=== PATIENT | female | born 1995 | race Caucasian/White ===

== ENCOUNTER 2019-01-30 21:56 | Emergency (ER) | payer MEDICAID, OTHER ==
[~2019-01-30] VITALS: Ht 157 cm; Wt 50.0 kg
[2019-01-30 23:36] LABS: BILIRUBIN,URINE NEGATIVE (NEGATIVE); CLARITY,URINE SL CLOUDY; COLOR,URINE YELLOW; GLUCOSE, URINE (UA) NEGATIVE (NEGATIVE); KETONES,URINE NEGATIVE (NEGATIVE); LEUKOCYTE ESTERASE ,URINE NEGATIVE (NEGATIVE); NITRITE,URINE NEGATIVE (NEGATIVE); PROTEIN,URINE NEGATIVE (NEGATIVE)
[2019-01-30 23:47] LABS: WBC,URINE 0-2 /HPF
[2019-01-30 23:48] LABS: AMORPHOUS SEDIMENT,UR FEW AMOR URATES /LPF; BACTERIA,URINE TRACE /HPF
[2019-01-30 23:49] LABS: BASOPHILS % (AUTO) 0 % (0-10); EOSINOPHILS # (AUTO) 0.4 10^3/uL (0.0-0.3); EOSINOPHILS % (AUTO) 6 % (0-10); HEMATOCRIT 39 % (35-52); HEMOGLOBIN 12.5 G/DL (11.5-16.0); LYMPHOCYTES # (AUTO) 2.2 X 10^3 (1.0-4.0); LYMPHOCYTES % (AUTO) 33 % (12-44); MEAN CORPUSCULAR HEMOGLOBIN 30 PG (25-34); MEAN CORPUSCULAR HGB CONC 33 G/DL (32-36); MEAN CORPUSCULAR VOLUME 93 FL (80-99); MEAN PLATELET VOLUME 9.1 FL (7.4-10.4); MONOCYTES # (AUTO) 0.6 X 10^3 (0.0-1.0); MONOCYTES % (AUTO) 9 % (0-12); NEUTROPHILS # (AUTO) 3.5 X 10^3 (1.8-7.8); NEUTROPHILS % (AUTO) 52 % (42-75); PLATELET COUNT 279 10^3/uL (130-400); RED CELL DISTRIBUTION WIDTH 15.9 % (10.0-14.5); WHITE BLOOD COUNT 6.8 10^3/uL (4.3-11.0)
[2019-01-30 23:51] LABS: AMPHETAMINE SCREEN, URINE NEGATIVE (NEGATIVE); BARBITURATE SCREEN URINE NEGATIVE (NEGATIVE); BENZODIAZEPINES SCREEN URINE NEGATIVE (NEGATIVE); CANNABINOID SCREEN, URINE POSITIVE (NEGATIVE); COCAINE SCREEN URINE NEGATIVE (NEGATIVE); METHADONE STAT NEGATIVE (NEGATIVE); METHAMPHETAMINE SCREEN URINE S NEGATIVE (NEGATIVE); OPIATE SCREEN URINE NEGATIVE (NEGATIVE); OXYCODONE STAT NEGATIVE (NEGATIVE); PROPOXYPHENE STAT NEGATIVE (NEGATIVE); TRICYCLIC ANTIDEPRESSANTS SCRE NEGATIVE (NEGATIVE)
[2019-01-31 00:01] LABS: INR 0.9 (0.8-1.4); PROTHROMBIN TIME PATIENT 12.9 SEC (12.2-14.7)
[2019-01-31 00:07] LABS: ALANINE AMINOTRANSFERASE 15 U/L (0-55); ALBUMIN 4.3 GM/DL (3.2-4.5); ALKALINE PHOSPHATASE 62 U/L (40-136); AMYLASE 65 U/L (25-125); BILIRUBIN,TOTAL 0.1 MG/DL (0.1-1.0); BUN/CREATININE RATIO 20; CALCIUM 8.7 MG/DL (8.5-10.1); CARBON DIOXIDE 24 MMOL/L (21-32); CHLORIDE 106 MMOL/L (98-107); CREATININE SERUM 0.81 MG/DL (0.60-1.30); GFR ESTIMATED > 60; GLUCOSE 77 MG/DL (70-105); MAGNESIUM 1.8 MG/DL (1.6-2.4); POTASSIUM 4.2 MMOL/L (3.6-5.0); SODIUM 141 MMOL/L (135-145); TOTAL PROTEIN 7.1 GM/DL (6.4-8.2)
[2019-01-31] MEDS ORDERED: NS 100 ML (IVPB) BAG IV ONE (01:30)
[2019-01-31] MEDS ORDERED: HOLD METFORMIN - RECEIVED CONTRAST 20 ML VIAL IV SCH (01:30)
[2019-01-31] MEDS ORDERED: IOHEXOL 350 MG/ML 100 ML (OMNIPAQUE 350) VIAL IV ONE (01:30)
--- NOTE | 2019-01-31 01:50 | NUR ---
CHECKED ON PT WELFARE, PT LYING QUIETLY IN FOUR POINT RESTRAINTS. PMS INTACT X4
--- NOTE | 2019-01-31 02:36 | ED GI ---
General Chief Complaint: Abdominal/GI Problems Stated Complaint: DECREASED URINATION AND BOWEL MOVEMENTS Source of Information: Patient History of Present Illness Date Seen by Provider: Jan 30, 2019 Time Seen by Provider: 23:10 Initial Comments PT ARRIVES VIA POV FROM HOME, WITH SISTER PT STATES SHE HAD DIARRHEA X 1 --2 DAYS AGO, BUT NO BM SINCE THEN--STATES SHE HAD TO STRAIN TO EVEN GET LIQUID STOOL OUT STATES FOR THE LAST COUPLE OF DAYS "CAN'T USE THE BATHROOM"--STATES SHE HAS NOT VOIDED OR URINATED FOR THE LAST COUPLE OF DAYS STATES SHE HAS NOT URINATED SINCE YESTERDAY NO ABDOMINAL PAIN, BUT FEELS BLOATED NO FEVER NO PAIN ON URINATION. NO BLOOD IN STOOLS NO NAUSEA/VOMITING. STATES SHE HAS BEEN EATING AND DRINKING "NORMAL" --ATE ONE TIME TODAY--A PIECE OF CHICKEN. STATES SHE HAS HAD 2 SODAS AND A LITTLE BIT OF WATER TO DRINK TODAY. NO PAIN ANYWHERE NO NUMBNESS OR TINGLING ANYWHERE NO BACK PAIN NO PRIOR HISTORY OF SIMILAR, OTHER THAN CONSTIPATION NO PRIOR ABDOMINAL SURGERIES STATES SHE HAS BEEN ON PROZAC AND ZYPREXA FOR 3-4 MONTHS, AND HAS NOT HAD ANY MEDICATION CHANGES. STATES SHE HAD RSV 1 WEEK AGO--SEEN AT [facility]. NO RX'S GIVEN, AND THOSE SYMPTOMS HAVE RESOLVED. LMP--NOW, NORMAL. NO CONTROL STATES SHE HAS BEEN HERE FOR THE LAST COUPLE OF MONTHS, STAYING WITH HER SISTER, BUT IS MOVING BACK TO [place] IN THE MORNING. PCP: [facility] Allergies and Home Medications Allergies Coded Allergies: No Known Drug Allergies (Unverified , 01/31/19) Patient Home Medication List Home Medication List Reviewed: Yes Review of Systems Review of Systems Constitutional: no symptoms reported; No chills, No diaphoresis, No fever, No weakness EENTM: No Symptoms Reported Respiratory: No Symptoms Reported Cardiovascular: No Symptoms Reported Gastrointestinal: See HPI; Denies Abdominal Pain; Diarrhea; Denies Nausea, Denies Poor Appetite, Denies Poor Fluid Intake, Denies Rectal Bleeding, Denies Vomiting Genitourinary: See HPI; Denies Flank Pain Musculoskeletal: no symptoms reported; No back pain, No neck pain Skin: no symptoms reported Psychiatric/Neurological: No Symptoms Reported; Denies Numbness, Denies Paresthesia Endocrine: No Symptoms Reported Hematologic/Lymphatic: No Symptoms Reported Past [id number]-Xlgbtv Hx Patient Social History Alcohol Use: Past History (HISTORY OF ABUSE--HEAVY/DAILY USE--LAST ETOH 12/2018) Recreational Drug Use: Yes ("EVERYTHING EXCEPT HEROIN"--DENIES IV USE) Drug of Choice: "EVERY DRUG EXCEPT HEROIN" PER PT, DENIES IV USE Smoking Status: Current Everyday Smoker (1/2 PPD) Type Used: Cigarettes (1 /2 PPD) 2nd Hand Smoke Exposure: No Recent Foreign Travel: No Contact w/Someone Who Travel: No Recent Hopitalizations: No Physical Abuse: No Sexual Abuse: No Mistreated: No Fear: No Immunizations Up To Date Tetanus Booster (TDap): Unknown PED Vaccines UTD: Yes Seasonal Allergies Seasonal Allergies: No Past Medical History Surgeries: Yes (WISDOM TEETH REMOVED.) Respiratory: No Cardiac: No Neurological: No Reproductive Disorders: No Genitourinary: No Gastrointestinal: Yes (HEPATITIS B--NO TREATMENT. ) Liver Disease/Jaundice, Hepatitis Musculoskeletal: No Endocrine: No HEENT: No Cancer: No Psychosocial: Yes (POLYSUBSTANCE ABUSE--"EVERYTHING EXCEPT HEROIN" PER PT, DENIES IV USE. DRANK HEAVILY/DAILY--CLAIMS LAST ETOH WAS 12/2018--STATES SHE WAS IN SUBSTANCE ABUSE TREATMENT FOR 1 1/2 TO 2 YEARS, ENDED IN 2016. ) Integumentary: No Physical Exam Vital Signs Vital Signs - First Documented 01/30/19 23:00 Temp 36.8 Pulse 75 Resp 20 B/P (MAP) 94/82 (86) Pulse Ox 98 O2 Delivery Room Air Capillary Refill : Height/Weight/BMI Height: '" Weight: lbs. oz. kg; BMI Method: General Appearance: no apparent distress, thin, other (SMILING, CONSTANT MOVEMENTS OF BODY AND MOUTH. ) HEENT: PERRL/EOMI Neck: normal inspection Respiratory: normal breath sounds, no respiratory distress, no accessory muscle use Cardiovascular: regular rate, rhythm, no murmur Gastrointestinal: normal bowel sounds, non tender, soft Extremities: normal inspection, normal capillary refill Back: no CVA tenderness Neurologic/Psychiatric: derrickman helper II-XII nml as tested, no motor/sensory deficits, alert, normal mood/affect, oriented x 3 Skin: normal color, warm/dry, tattoos/piercings (EXTENSIVE TATTOOS), other (EXTENSIVE SORES/SCARS/SCABS TO FACE, ARMS, CHEST--MANY ON CHEST ARE FRESHLY PICKED AT AND BLEEDING. ) Progress/Results/Core Measures Results/Orders Lab Results Laboratory Tests Test 01/30/19 23:25 01/30/19 23:40 Range/Units Urine Color YELLOW Urine Clarity SL CLOUDY Urine pH 6.0 5-9 Urine Specific [place] 1.025 H 1.016-1.022 Urine Protein NEGATIVE NEGATIVE Urine Glucose (UA) NEGATIVE NEGATIVE Urine Ketones NEGATIVE NEGATIVE Urine Nitrite NEGATIVE NEGATIVE Urine Bilirubin NEGATIVE NEGATIVE Urine Urobilinogen 0.2 < = 1.0 MG/DL Urine Leukocyte Esterase NEGATIVE NEGATIVE Urine RBC (Auto) 3+ H NEGATIVE Urine RBC 10-25 H /HPF Urine WBC 0-2 /HPF Urine Crystals PRESENT H /LPF Urine Amorphous Sediment FEW CONCEPCIÓN URATES H /LPF Urine Bacteria TRACE /HPF Urine Casts NONE /LPF Urine Mucus NEGATIVE /LPF Urine Culture Indicated NO Urine Opiates Screen NEGATIVE NEGATIVE Urine Oxycodone Screen NEGATIVE NEGATIVE Urine Methadone Screen NEGATIVE NEGATIVE Urine Propoxyphene Screen NEGATIVE NEGATIVE Urine Barbiturates Screen NEGATIVE NEGATIVE Ur Tricyclic Antidepressants Screen NEGATIVE NEGATIVE Urine Phencyclidine Screen NEGATIVE NEGATIVE Urine Amphetamines Screen NEGATIVE NEGATIVE Urine Methamphetamines Screen NEGATIVE NEGATIVE Urine Benzodiazepines Screen NEGATIVE NEGATIVE Urine Cocaine Screen NEGATIVE NEGATIVE Urine Cannabinoids Screen POSITIVE H NEGATIVE White Blood Count 6.8 4.3-11.0 10^3/uL Red Blood Count 4.15 L 4.35-5.85 10^6/uL Hemoglobin 12.5 11.5-16.0 G/DL Hematocrit 39 35-52 % Mean Corpuscular Volume 93 80-99 FL Mean Corpuscular Hemoglobin 30 25-34 PG Mean Corpuscular Hemoglobin Concent 33 32-36 G/DL Red Cell Distribution Width 15.9 H 10.0-14.5 % Platelet Count 279 130-400 10^3/uL Mean Platelet Volume 9.1 7.4-10.4 FL Neutrophils (%) (Auto) 52 42-75 % Lymphocytes (%) (Auto) 33 12-44 % Monocytes (%) (Auto) 9 0-12 % Eosinophils (%) (Auto) 6 0-10 % Basophils (%) (Auto) 0 0-10 % Neutrophils # (Auto) 3.5 1.8-7.8 X 10^3 Lymphocytes # (Auto) 2.2 1.0-4.0 X 10^3 Monocytes # (Auto) 0.6 0.0-1.0 X 10^3 Eosinophils # (Auto) 0.4 H 0.0-0.3 10^3/uL Basophils # (Auto) 0.0 0.0-0.1 10^3/uL Prothrombin Time 12.9 12.2-14.7 SEC INR Comment 0.9 0.8-1.4 Activated Partial Thromboplast Time 28 24-35 SEC Sodium Level 141 135-145 MMOL/L Potassium Level 4.2 3.6-5.0 MMOL/L Chloride Level 106 98-107 MMOL/L Carbon Dioxide Level 24 21-32 MMOL/L Anion Gap 11 5-14 MMOL/L Blood Urea Nitrogen 16 7-18 MG/DL Creatinine 0.81 0.60-1.30 MG/DL Estimat Glomerular Filtration Rate > 60 BUN/Creatinine Ratio 20 Glucose Level 77 70-105 MG/DL Calcium Level 8.7 8.5-10.1 MG/DL Corrected Calcium 8.5 8.5-10.1 MG/DL Magnesium Level 1.8 1.6-2.4 MG/DL Total Bilirubin 0.1 0.1-1.0 MG/DL Aspartate Amino Transf (AST/SGOT) 16 5-34 U/L Alanine Aminotransferase (ALT/SGPT) 15 0-55 U/L Alkaline Phosphatase 62 40-136 U/L Total Protein 7.1 6.4-8.2 GM/DL Albumin 4.3 3.2-4.5 GM/DL Amylase Level 65 25-125 U/L Serum Test, Qualitative NEGATIVE NEGATIVE Serum Alcohol < 10 <10 MG/DL My Orders Orders - [place] HUI DO Ed Iv/Invasive Line Start (01/30/19 23:17) Urine Bedside (01/30/19 23:17) Bladder Scan (01/30/19 23:17) Alcohol (01/30/19 23:17) Amylase (01/30/19 23:17) Cbc With Automated Diff (01/30/19 23:17) Comprehensive Metabolic Panel (01/30/19 23:17) Drug Screen Stat (Urine) (01/30/19 23:17) Magnesium (01/30/19 23:17) Protime With Inr (01/30/19 23:17) Partial Thromboplastin Time (01/30/19 23:17) Ua Culture If Indicated (01/30/19 23:17) Hcg,Qualitative Serum (01/31/19 00:11) Ct Abdomen/Pelvis W (01/31/19 00:25) Acute Abd Series (01/31/19 00:25) Iohexol Injection (Omnipaque 350 Mg/Ml 1 (01/31/19 01:30) Received Contrast (Hold Metformin- Contr (01/31/19 01:30) Ns (Ivpb) (Sodium Chloride 0.9% Ivpb Bag (01/31/19 01:30) Medications Given in ED Current Medications Medications Dose Ordered Sig/Shalini Route Start Time Stop Time Status Last Admin Dose Admin Iohexol 100 ml ONCE ONCE IV 01/31/19 01:30 01/31/19 01:31 DC 01/31/19 01:40 66 ML Sodium Chloride 100 ml ONCE ONCE IV 01/31/19 01:30 01/31/19 01:31 DC 01/31/19 01:40 80 ML Vital Signs/I&O 01/30/19 01/31/19 23:00 02:45 Temp 36.8 36.8 Pulse 75 75 Resp 20 18 B/P (MAP) 94/82 (86) 105/71 (86) Pulse Ox 98 100 O2 Delivery Room Air Room Air Progress Progress Note : Progress Note PT VOIDED A SMALL AMOUNT ON ARRIVAL. BLADDER SCAN SHOWED 282 ML PT RESTED QUIETLY FOR ENTIRE ER STAY AND HAD NO COMPLAINTS FOR ENTIRE ER STAY Diagnostic Imaging Comments ABDOMEN XRAYS--NO ACUTE PROCESS, VERY MINIMAL STOOL IN COLON, NO OBSTRUCTION. PENDING RADIOLOGIST REVIEW CT ABDOMEN/PELVIS--NO ACUTE PROCESS, PER [facility] VIA FAX AT 0221 Reviewed: Reviewed by Me Departure Impression Primary Impression: INTESTINAL GAS AND BLOATING Additional Impression: Marijuana use Disposition: HOME, SELF-CARE Condition: Stable Departure-Patient Inst. Referrals: NO,LOCAL PHYSICIAN (PCP/Family) Primary Care Physician Patient Instructions: Drug Abuse and Drug Addiction (DC), Gas and Bloating Add. Discharge Instructions: DRINK LOTS OF CLEAR LIQUIDS--WATER, BROTH, JELLO, GATORADE--DRINK ENOUGH SO YOU ARE URINATING EVERY 2-3 HOURS WHILE AWAKE BRATS DIET--BANANAS, RICE, APPLESAUCE, TOAST, SALTINES OVER THE COUNTER GAS X, MYLICON, OR PHAZYME FOR INTESTINAL GAS FOLLOW UP WITH OF CHOICE IN [place] IN 2-3 DAYS IF NO BETTER All discharge instructions reviewed with patient and/or family. Voiced understanding. [place] HUI DO Jan 31, 2019 02:36 POS
[2019-01-31 02:45] VITALS: BP 105/71
--- NOTE | 2019-01-31 06:39 | Diagnostic Imaging Report ---
INDICATION: Abdominal pain. COMPARISON: CT abdomen pelvis performed earlier same day. FINDINGS: Lungs are clear. No pleural effusion or pneumothorax. Normal cardiomediastinal silhouette. No free intraperitoneal air or fluid. Contrast material is present within the renal collecting system from recent CT of the abdomen and pelvis. Normal regional skeleton. IMPRESSION: 1. No features of acute process. Please see CT abdomen pelvis report from earlier same day for complete evaluation of the abdomen. Dictated by: Dictated on workstation # [id number]
--- NOTE | 2019-01-31 06:41 | Diagnostic Imaging Report ---
CT ABDOMEN/PELVIS W TECHNIQUE: Multiple contiguous axial images were obtained through the abdomen and pelvis after administration of intravenous contrast. All CT scans use one or more of the following dose optimizing techniques: automated exposure control, MA and/or KvP adjustment based on a patient size and exam type, or iterative reconstruction. INDICATION: Decreased urination and bowel movements. COMPARISON: None available. FINDINGS: Lower chest: The lung bases are clear. No pericardial or pleural effusion. Peritoneum: No free intraperitoneal air or fluid. Liver and biliary system: The liver is normal. The gallbladder is normal. No biliary duct dilation. Spleen and Pancreas: Spleen is normal. The pancreas enhances normally without mass lesion or peripancreatic inflammatory changes. Adrenals: Normal. tract: The kidneys enhance normally without suspicious mass or obstruction. Urinary bladder is distended without wall thickening. Uterus and ovaries are normal in appearance. Air-filled tampon within the vagina. GI tract: Stomach is partially filled with fluid and there is no wall thickening. No bowel obstruction. No pericolonic inflammatory changes. Potential appendectomy. However, patient's history of appendectomy, there are no features of appendicitis. Vasculature and Lymph nodes: Normal caliber aorta. No abdominal or pelvic lymphadenopathy. Musculoskeletal: No concerning osseous lesion. IMPRESSION: 1. No acute process in the abdomen and pelvis. 2. Findings are in agreement with the preliminary report. Dictated by: Dictated on workstation # [id number]
== END 2019-01-31 02:46 | disposition home or self-care (01) ==
LOC: ER 21:58
DX: R14.0 Abdominal distension (gaseous) (principal); F12.90 Cannabis use, unspecified, uncomplicated; F17.210 Nicotine dependence, cigarettes, uncomplicated; Z87.19 Personal history of other diseases of the digestive system
CPT/HCPCS: 36415; 74022; 74177; 80053; 80306; 80320; 81000; 82150; 83735; 84703; 85025; 85610; 85730